=== PATIENT | female | born 1950 | race Caucasian/White ===

== ENCOUNTER 2018-12-04 23:15 | Emergency (ER) | payer MEDICARE ==
[~2018-12-04] VITALS: Ht 170.2 cm; Wt 133.6 kg
[2018-12-04] MEDS ORDERED: HUMALOG 30100 UNITS/ (23:22)
[2018-12-04] MEDS ORDERED: CYMBALTA60 MG PO (23:22)
[2018-12-04] MEDS ORDERED: NORVASC5 MG PO (23:22)
[2018-12-04] MEDS ORDERED: GLIMEPIRIDE1 MG PO (23:22)
[2018-12-04] MEDS ORDERED: LANTUS SOL100 UNIT/1 SC (23:22)
[2018-12-04] MEDS ORDERED: SYNTHROID100 MCG PO (23:23)
[2018-12-04] MEDS ORDERED: MAXZIDE 75/501 TAB (23:23)
[2018-12-04] MEDS ORDERED: LISINOPRIL5 MG PO (23:23)
[2018-12-05 00:21] LABS: HEMATOCRIT 36.6 % (36.0-48.0); HEMOGLOBIN 12.5 g/dL (12-16); LYMPHOCYTES 4.7 % (15-50); MCH 31.8 pg (26.0-34.0); MCHC 34.2 g/dL (31.0-37.0); MCV 93.1 fL (80.0-100.0); NEUTROPHILS 93.6 % (40-80); PLATELET COUNT 190 10x3/uL (130-400); RBC 3.93 10x6/uL (4.00-5.40); RDW 13.4 % (11.5-14.5); WBC 12.3 10x3/uL (4.8-10.8)
[2018-12-05 00:44] LABS: ALBUMIN 1.5 g/dL (3.4-5.0); ANION GAP 16.9 mmol/L (8-16); BILIRUBIN - TOTAL 0.47 mg/dL (0.2-1.3); C-REACTIVE PROTEIN 16.8 mg/dL (0.0-0.9); CARBON DIOXIDE 21.3 mmol/L (21.0-32.0); CREATININE - SERUM 1.5 mg/dL (0.6-1.3); POTASSIUM - SERUM 4.2 mmol/L (3.5-5.1); PROTEIN - SERUM 6.9 g/dL (6.4-8.2)
[2018-12-05 02:54] VITALS: Ht 170.2 cm; Wt 133.6 kg
[2018-12-05 04:19] VITALS: BP 118/53
== END 2018-12-05 04:19 | disposition other institution (70) ==
LOC: EDBD 23:15 → D.ER 23:15
PROVIDERS: Family Medicine
DX: N76.4 Abscess of vulva (principal); E11.9 Type 2 diabetes mellitus without complications; K74.60 Unspecified cirrhosis of liver; I10 Essential (primary) hypertension